=== PATIENT | female | born 1975 | race Caucasian/White ===

== ENCOUNTER 2018-04-30 18:26 | Inpatient (IN) | payer OTHER ==
[~2018-04-30] VITALS: Ht 162.6 cm; Wt 77.4 kg
[~2018-04-30 18:26] MED LIST: CARV-49 PO; FURO40TA4 PO; LISI40TA4 PO; PANT40TA4 PO; TRAM50TA2 PO
[2018-04-30 18:39] VITALS: BP 141/85
[2018-04-30] MEDS ORDERED: furosemide 10 MG/1 ML 10ml inj IV ONE (19:20)
[2018-04-30] MEDS ORDERED: furosemide 40mg/4ml inj IV ONE (19:20)
[2018-04-30 19:46] LABS: BASOPHILS # (AUTO) 0.1 X10'3 (0-0.2); BASOPHILS % (AUTO) 0.7 % (0-1); EOSINOPHILS # (AUTO) 0.4 X10'3 (0-0.9); EOSINOPHILS % (AUTO) 4.3 % (0-6); HEMATOCRIT 37.1 % (35.0-45.0); HEMOGLOBIN 11.5 g/dl (12.0-16.0); LYMPHOCYTES # (AUTO) 0.9 X10'3 (1.1-4.8); LYMPHOCYTES % (AUTO) 10.1 % (21-51); MEAN CORPUSCULAR HEMOGLOBIN 24.3 PG (27.0-31.0); MEAN CORPUSCULAR HGB CONC 31.1 % (33.0-36.5); MEAN CORPUSCULAR VOLUME 77.9 FL (78-98); MEAN PLATELET VOLUME 9.2 FL (7.4-10.4); MONOCYTES # (AUTO) 1.2 X10'3 (0-0.9); MONOCYTES % (AUTO) 14.3 % (2-12); NEUTROPHILS % (AUTO) 70.6 % (42-75); PLATELET COUNT 198 X10'3 (140-440); RED BLOOD COUNT 4.76 X10'6 (4.20-5.60); RED CELL DISTRIBUTION WIDTH 20.1 % (11.5-14.5); WHITE BLOOD COUNT 8.5 X10'3 (4.5-11.0)
[2018-04-30 20:01] LABS: ALANINE AMINOTRANSFERASE 23 U/L (12-78); ALBUMIN 2.1 G/DL (3.4-5.0); ALBUMIN/GLOBULIN RATIO 0.5 (1.1-1.5); ALKALINE PHOSPHATASE 274 IU/L (46-116); ANION GAP 8 (8-16); ASPARTATE AMINO TRANSFERASE 37 U/L (10-37); BLOOD UREA NITROGEN 21 MG/DL (7-18); BUN/CREATININE RATIO 20.6 (6.6-38.0); CALCIUM 7.9 MG/DL (8.5-10.1); CHLORIDE 103 MMOL/L (99-107); CREATININE 1.02 MG/DL (0.40-0.90); GLUCOSE 104 MG/DL (70-104); INR 1.2 INR; PARTIAL THROMBOPLASTIN TIME 28 SECONDS (22-32); PROTHROMBIN TIME 12.3 SECONDS (9.0-12.0); SODIUM 138 MMOL/L (135-145); TOTAL CARBON DIOXIDE 27.3 MMOL/L (24-32); TOTAL PROTEIN 6.6 G/DL (6.4-8.2); eGFR 60 ML/MIN
[2018-04-30 20:15] LABS: ANISOCYTOSIS 2+; HYPOCHROMASIA 2+; MICROCYTOSIS 2+; PLATELET ESTIMATE NORMAL; SCHISTOCYTES 1+; TARGET CELLS 1+
[2018-04-30 21:03] LABS: URINE AMPHETAMINE SCREEN POSITIVE (Neg); URINE BARBITUATE SCREEN NEGATIVE (Neg); URINE BENZODIAZEPINES SCREEN NEGATIVE (Neg); URINE CANNABINOID SCREEN NEGATIVE (Neg); URINE COCAINE SCREEN NEGATIVE (Neg); URINE METHADONE SCREEN NEGATIVE (Neg); URINE OPIATE SCREEN NEGATIVE (Neg); URINE PHENCYCLIDINE SCREEN NEGATIVE (Neg)
[2018-04-30] MEDS ORDERED: ondansetron/PF 4mg/2ml inj IV PRN (21:15)
[2018-04-30] MEDS ORDERED: acetaminophen 325mg tablet PO PRN (21:15)
[2018-04-30] MEDS ORDERED: magnesium hydroxide 30ml (MOM) UD suspension PO PRN (21:15)
[2018-04-30] MEDS ORDERED: mag hydrox/Alum hydrox/simeth 30ml oral suspension PO PRN (21:15)
[2018-04-30] MEDS ORDERED: SPIR50TA5 PO (21:23)
[2018-04-30] MEDS ORDERED: nitroGLYCERIN 0.4mg SUBLingual tab SL PRN (21:43)
[2018-05-01] MEDS ORDERED: furosemide 40mg/4ml inj IV SCH (08:00)
[2018-05-01] MEDS ORDERED: carvedilol 6.25mg tablet PO SCH ×4 (08:00→20:00)
[2018-05-01] MEDS ORDERED: lisinopril 20mg tablet PO SCH (08:00)
[2018-05-01] MEDS ORDERED: pantoprazole 40mg Tablet.DR PO SCH (08:00)
[2018-05-01] MEDS ORDERED: magnesium 4gm in 100ml NS 100 ML IV PRN (09:30)
[2018-05-01] MEDS ORDERED: potassium Cl 40MEQ/NS 500ml 500 ML IV PRN ×2 (09:30)
[2018-05-01] MEDS ORDERED: acetaminophen 325mg tablet PO PRN (09:30)
[2018-05-01] MEDS ORDERED: magnesium 1gm/100ml D5W IVPB 100 ML IV PRN (09:30)
[2018-05-01] MEDS ORDERED: potassium Cl 20 mEq SR tablet PO PRN ×2 (09:30)
[2018-05-01] MEDS ORDERED: K and/or MAG REPLACEMENT MC SCH (09:30)
[2018-05-01] MEDS ORDERED: magnesium Cl slow-release 64mg tablet PO PRN (09:30)
[2018-05-01] MEDS ORDERED: ondansetron/PF 4mg/2ml inj IV PRN (09:30)
[2018-05-01] MEDS ORDERED: nitroGLYCERIN 0.4mg SUBLingual tab SL PRN (09:35)
[2018-05-01] MEDS ORDERED: CARV-49 PO (13:48)
[2018-05-01] MEDS ORDERED: ASPI-1130 PO (13:48)
[2018-05-01] MEDS ORDERED: PANT-47 PO (13:48)
[2018-05-01] MEDS ORDERED: ALBU18HF2 IH (13:48)
[2018-05-01] MEDS ORDERED: FURO-149 PO (13:48)
[2018-05-01] MEDS ORDERED: LISI-600 PO (13:48)
[2018-05-01] MEDS ORDERED: ATOR40TA72 PO (13:48)
[2018-05-01] MEDS ORDERED: heparin, porcine 5000 units/ml vial SQ SCH (20:00)
[2018-05-01] MEDS ORDERED: furosemide 10 MG/1 ML 10ml inj IV SCH ×2 (20:00)
[2018-05-02] MEDS ORDERED: spironolactone 25 MG tablet PO SCH ×2 (08:30)
== END 2018-04-30 21:43 | disposition left against medical advice (07) | DRG 316 ==
LOC: ER 18:26 → ED HOLD 21:15
PROVIDERS: ADMIT Internal Medicine; ATTEND Internal Medicine
DX: I42.7 Cardiomyopathy due to drug and external agent (principal); I11.0 Hypertensive heart disease with heart failure; J44.9 Chronic obstructive pulmonary disease, unspecified; I50.9 Heart failure, unspecified; F17.200 Nicotine dependence, unspecified, uncomplicated; F15.10 Other stimulant abuse, uncomplicated; Z53.21 Procedure and treatment not carried out due to patient leaving prior to being seen by health care provider; Z59.0 Homelessness; Z56.0 Unemployment, unspecified; Z88.0 Allergy status to penicillin; Z79.899 Other long term (current) drug therapy; Z98.891 History of uterine scar from previous surgery
CPT/HCPCS: 36415; 71045; 80053; 80305; 83880; 85025; 85610; 85730; 93005; 96374; 99285; J1940